=== PATIENT | male | born 1985 | race Caucasian/White ===

== ENCOUNTER 2018-02-22 15:19 | Inpatient (IN) ==
[2018-02-22] MEDS ORDERED: Sod Chloride 0.9% Inj 1,000 ML IV.SIG ONE (16:51)
[2018-02-22] MEDS ORDERED: Tetanus/Diphtheria Toxoid Adult Vaccine Inj 0.5 ML Vial IM ONE (16:51)
--- NOTE | 2018-02-22 16:55 | ED ---
HPI General Chief complaint: Skin/Abscess/Foreign Body Stated complaint: knee pain/va sent Time Seen by Provider: 02/22/18 16:46 History of Present Illness HPI narrative: This Is a 32-year-old male who [facility]. He reports that 5 days ago he fell [place] and scraped his right knee. For 4 days he has had pain and redness to the anterior right knee. [facility] and [facility] here for further evaluation. Pain is aching, constant, worse with movements of the right knee. Denies any fevers or chills. Symptoms are moderate. No other complaints at this time. Related Data Home Medications Medication Instructions Recorded Confirmed No Known Home Medications 02/22/18 02/22/18 Allergies Allergy/AdvReac Type Severity Reaction Status Date / Time gabapentin Allergy Rash Verified 02/22/18 15:49 haloperidol [From Haldol] Allergy Joint Pain Verified 02/22/18 15:49 ketorolac [From Toradol] Allergy Hives Verified 02/22/18 15:49 Review of Systems ROS: all other systems reviewed are negative PMFSH Medical History Medical History Asthma (Acute) Chronic back pain (Acute) GERD (gastroesophageal reflux disease) (Acute) Family History Family History Other Diabetes mellitus Social History Social History Substance History: No History of Abuse Second Hand Smoke Exposure: Yes Smoking Status: Current every day smoker Tobacco Type: Cigarettes How Often Do You Have a Drink Containing Alcohol: Never Recent Travel in [facility] within the Last 8 Weeks: No Recent Out of Country Travel within the Last 8 Weeks: No Exam Narrative Exam Narrative: GENERAL: Well-developed well-nourished male no acute distress SKIN: Warm and dry. Examination of the legs reveals multiple abrasions. There is an abrasion on the anterior right knee with large area of surrounding erythema and induration. No fluctuance. HEAD: Atraumatic. Normocephalic. EYES: Pupils equal and round. No scleral icterus. No injection or drainage. ENT: No nasal bleeding or discharge. Mucous membranes pink and moist. NECK: Trachea midline. No JVD. CARDIOVASCULAR: Regular rate and rhythm. No murmur appreciated. RESPIRATORY: No accessory muscle use. Clear to auscultation. Breath sounds equal bilaterally. GASTROINTESTINAL: Abdomen soft, non-tender, nondistended. Hepatic and splenic margins not palpable. MUSCULOSKELETAL: Skin as noted above. There is tenderness to palpation to the anterior right knee. There is pain with flexion of the right knee which is limited. Distal pulses are intact. NEUROLOGICAL: Awake and alert. No obvious cranial nerve deficits. Motor grossly within normal limits. Normal speech. Course Initial Documented Vital Signs Temperature 98.5 F 02/22/18 15:46 Pulse Rate 95 H 02/22/18 15:46 Respiratory Rate 20 02/22/18 15:46 Blood Pressure 143/82 H 02/22/18 15:46 Pulse Oximetry 100 02/22/18 15:46 Last Documented Vital Signs Temperature 98.2 F 02/23/18 00:00 Pulse Rate 80 02/23/18 00:00 Respiratory Rate 20 02/23/18 00:08 Blood Pressure 110/58 L 02/23/18 00:00 Pulse Oximetry 94 L 02/23/18 00:00 Medical Decision Making FREDIS Attestation FREDIS supervised visit: Yes Attestation: I, Dr. Lawler, have reviewed the advance practice practitioner's documentation and am in agreement, met with the patient face to face, made the diagnosis, and the medical decision making was done by me. *My assessment and Findings: Cellulitis vs. septic arthritis 32yo M with right knee and leg pain after falling while hiking. Pt has open wound and erythema right knee along with edema and warmth in right tib/fib. There is decreased flexion and extension in right knee so concern for septic arthritis. However, there is erythema over the area that we would do arthrocentesis so unable to perform it. Discussed with orthopedic surgeon Dr. Levy who have evaluated the patient and will take patient to the OR today. Labs reviewed, no leukocytosis. Mild hypokalemia. Lactic acid normal. However , C-reactive protein and ESR is elevated. Pt given antibiotics and will be NPO for OR tonight. MDM Narrative Medical decision making narrative: The patient has a large area of cellulitis noted to the right knee and right pretibial region, he has pain with flexion of the right knee which is limited. He has abrasions to the lower extremities. Plan is for lab work, x-ray of the right knee, he was given IV fluids, broad- spectrum antibiotics, tetanus vaccination. Lab work is been reviewed, potassium 3.0, oral potassium chloride administered, CRP is elevated at 13. ESR is 33. Case was discussed with the on-call orthopedist Dr Levy for concern of septic arthritis who saw the patient at bedside and plans on likely taking him to the OR today. Medical Screen Exam Complete: Yes Emergency Medical Condition: Yes Differential Diagnosis Differential Diagnosis: Cellulitis, sepsis, prepatellar bursitis, septic arthritis Lab Data Result diagrams: 02/22/18 17:45 02/22/18 17:45 Lab Results 02/22/18 02/22/18 02/22/18 Range/Units 17:45 17:45 17:45 WBC 10.5 (4.0-11.0) th/mm3 RBC 4.33 L (4.50-5.90) mil/mm3 Hgb 13.1 (13.0-17.0) gm/dL Hct 37.0 L (39.0-51.0) % MCV 85.6 (80.0-100.0) fL MCH 30.4 (27.0-34.0) pg MCHC 35.5 (32.0-36.0) % RDW 13.3 (11.6-17.2) % Plt Count 223 (150-450) th/mm3 MPV 8.4 (7.0-11.0) fL Neut % (Auto) 70.9 H (16.0-70.0) % Lymph % (Auto) 18.8 (9.0-44.0) % [place] % (Auto) 8.9 H (0.0-8.0) % Eos % (Auto) 1.1 (0.0-4.0) % Baso % (Auto) 0.3 (0.0-2.0) % Neut # (Auto) 7.4 (1.8-7.7) th/mm3 Lymph # (Auto) 2.0 (1.0-4.8) th/mm3 [place] # (Auto) 0.9 (0.0-0.9) th/mm3 Eos # (Auto) 0.1 (0.0-0.4) th/mm3 Baso # (Auto) 0.0 (0.0-0.2) th/mm3 WBC Differential . Differential Comment Auto diff final ESR (0-15) mm/hr Sodium 139 (136-145) meq/L Potassium 3.0 L (3.5-5.1) meq/L Chloride 101 (98-107) meq/L Carbon Dioxide 29.5 (21.0-32.0) meq/L Anion Gap 9 (5-15) meq/L BUN 10 (7-18) mg/dL Creatinine 0.78 (0.60-1.30) mg/dL Estimated GFR Greater than 89 (>89) mL/min Random Glucose 93 (74-106) mg/dL Lactic Acid 1.0 (0.4-2.0) mmol/L Calcium 8.7 (8.5-10.1) mg/dL Total Bilirubin 0.4 (0.2-1.0) mg/dL AST 19 (15-37) U/L ALT 34 (12-78) U/L Alkaline Phosphatase 98 (45-117) U/L Total Creatine Kinase 243 (39-308) U/L CK-MB (CK-2) 1.9 (0.5-3.6) ng/mL C-Reactive Protein 13.00 H (0.00-0.30) mg/dL Total Protein 6.8 (6.4-8.2) g/dL Albumin 3.0 L (3.4-5.0) g/dL 02/22/18 Range/Units 17:45 WBC (4.0-11.0) th/mm3 RBC (4.50-5.90) mil/mm3 Hgb (13.0-17.0) gm/dL Hct (39.0-51.0) % MCV (80.0-100.0) fL MCH (27.0-34.0) pg MCHC (32.0-36.0) % RDW (11.6-17.2) % Plt Count (150-450) th/mm3 MPV (7.0-11.0) fL Neut % (Auto) (16.0-70.0) % Lymph % (Auto) (9.0-44.0) % [place] % (Auto) (0.0-8.0) % Eos % (Auto) (0.0-4.0) % Baso % (Auto) (0.0-2.0) % Neut # (Auto) (1.8-7.7) th/mm3 Lymph # (Auto) (1.0-4.8) th/mm3 [place] # (Auto) (0.0-0.9) th/mm3 Eos # (Auto) (0.0-0.4) th/mm3 Baso # (Auto) (0.0-0.2) th/mm3 WBC Differential Differential Comment ESR 33 H (0-15) mm/hr Sodium (136-145) meq/L Potassium (3.5-5.1) meq/L Chloride (98-107) meq/L Carbon Dioxide (21.0-32.0) meq/L Anion Gap (5-15) meq/L BUN (7-18) mg/dL Creatinine (0.60-1.30) mg/dL Estimated GFR (>89) mL/min Random Glucose (74-106) mg/dL Lactic Acid (0.4-2.0) mmol/L Calcium (8.5-10.1) mg/dL Total Bilirubin (0.2-1.0) mg/dL AST (15-37) U/L ALT (12-78) U/L Alkaline Phosphatase (45-117) U/L Total Creatine Kinase (39-308) U/L CK-MB (CK-2) (0.5-3.6) ng/mL C-Reactive Protein (0.00-0.30) mg/dL Total Protein (6.4-8.2) g/dL Albumin (3.4-5.0) g/dL Imaging Data Radiologist's impression: Knee X-Ray 02/22/18 16:51 CONCLUSION: Negative examination Discharge Plan Discharge Disposition Patient Disposition: 30 Still Patient Discharge Condition Condition: Stable Discharge Details Diagnosis: Cellulitis of leg, right Physicians Team ED Provider: Lo Lawler ED Midlevel Provider: Silvestre Qureshi Primary Care Provider: [facility] 's Attending Provider: Vicky Steward Other Providers: Yessenia Levy Alexandra Status ED Status: Left Department Discharge Information Discharge Date/Time: 02/22/18 20:10
--- NOTE | 2018-02-22 17:11 | XR ---
EXAM DATE: 02/22/2018 5:07 PM EST AGE/SEX: 32 years / Male INDICATIONS: Right anterior knee pain after hiking. CLINICAL DATA: This is the patient's initial encounter. Patient reports that signs and symptoms have been present for 1 week and indicates a pain score of 9/10. MEDICAL/SURGICAL HISTORY: None. None. COMPARISON: No prior exams available for comparison. FINDINGS: Bony structures are intact and in normal alignment. Joints are intact without dislocation or signifi cant arthropathy. Osseous density is normal. Soft tissues are unremarkable. No radiopaque foreign bodies seen. CONCLUSION: Negative examination Electronically signed by: Mehran Doe MD 02/22/2018 5:08 PM EST
[2018-02-22] MEDS ORDERED: Piperacil/Tazo 4.5 GM Premix 4.5 GM/100 ML BAG IV.SIG ONE (17:36)
[2018-02-22] MEDS ORDERED: Vancomycin Inj 1,000 MG in Sodium Chlor 0.9% Inj 250 ML IV.SIG ONE (17:36)
[2018-02-22 18:08] LABS: Baso % (Auto) 0.3 % (0.0-2.0); Eos # (Auto) 0.1 th/mm3 (0.0-0.4); Eos % (Auto) 1.1 % (0.0-4.0); Hemoglobin 13.1 gm/dL (13.0-17.0); Lymph % (Auto) 18.8 % (9.0-44.0); Mean Corpuscular HGB Conc 35.5 % (32.0-36.0); Mean Corpuscular Hemoglobin 30.4 pg (27.0-34.0); Mean Corpuscular Volume 85.6 fL (80.0-100.0); Mean Platelet Volume 8.4 fL (7.0-11.0); Mono # (Auto) 0.9 th/mm3 (0.0-0.9); Mono % (Auto) 8.9 % (0.0-8.0); Neut # (Auto) 7.4 th/mm3 (1.8-7.7); Neut % (Auto) 70.9 % (16.0-70.0); Platelet Count 223 th/mm3 (150-450); Red Blood Count 4.33 mil/mm3 (4.50-5.90); Red Cell Distribution Width 13.3 % (11.6-17.2); White Blood Count 10.5 th/mm3 (4.0-11.0)
[2018-02-22 18:32] LABS: Anion Gap 9 meq/L (5-15); Aspartate Aminotransferase 19 U/L (15-37); Blood Urea Nitrogen 10 mg/dL (7-18); Calcium 8.7 mg/dL (8.5-10.1); Carbon Dioxide 29.5 meq/L (21.0-32.0); Chloride 101 meq/L (98-107); Glomerular Filtration Rate Greater Than 89 mL/min (>89); Glucose,Random 93 mg/dL (74-106); Sodium 139 meq/L (136-145)
[2018-02-22 18:33] LABS: Alanine Aminotransferase 34 U/L (12-78)
[2018-02-22 18:35] LABS: Alkaline Phosphatase 98 U/L (45-117); Creatine Kinase 243 U/L (39-308); Total Protein 6.8 g/dL (6.4-8.2)
[2018-02-22 18:50] LABS: Creatine Kinase MB 1.9 ng/mL (0.5-3.6)
--- NOTE | 2018-02-22 19:33 | P.CONOP ---
[facility] Orthopedics Consult Note - [facility] Consult date: 02/22/18 Chief complaint: knee pain/va sent Narrative: 32 year old male presents with right knee and leg pain and swelling. He reports 5 days ago he fell while hiking and got several scrapes on the leg. He noticed 3 days ago the knee began to feel stiff and started to swell. He reports increased difficulty bending the knee and increased pain. He denies any other joint swelling or history of knee problems. He was started on antibiotics in the ED. Review of Systems Constitutional: Denies chills, Denies fever(s) Cardiovascular: Denies chest pain Respiratory: Denies shortness of breath Gastrointestinal: Denies abdominal pain Musculoskeletal: Reports abnormal walking, Reports joint pain, Reports joint swelling Neurologic: Denies dizziness PMFSH - History History Provided By: Patient - Medical History Medical History: Medical History (Last Reviewed 02/22/18 @ 17:14 by Neville Sousa) Asthma Chronic back pain - Surgical History Surgical History: Surgical History (Last Updated 02/22/18 @ 17:14 by Neville Sousa) History of appendectomy Previous back surgery S/P wrist surgery - Tobacco History Second Hand Smoke Exposure: Yes Tobacco Use In Past 30 Days: Yes Smoking Status: Current every day smoker Tobacco Type: Cigarettes - Alcohol History How Often Do You Have a Drink Containing Alcohol: Never - Substance Use History Substance History: No History of Abuse - Travel History Recent Travel in the [place] Within the Last 8 Weeks: No Recent Travel Out of the Country Within the Last 8 Weeks: No - Immunization History Tetanus Immunization: Unsure Medications and Allergies Active Medications: Active Medications Sodium Chloride (Ns Flush) 2 ml IV.FLUSH PRN PRN PRN Reason: FLUSH AFTER USING IV ACCESS Allergies Allergy/AdvReac Type Severity Reaction Status Date / Time gabapentin Allergy Rash Verified 02/22/18 15:49 haloperidol [From Haldol] Allergy Joint Pain Verified 02/22/18 15:49 ketorolac [From Toradol] Allergy Hives Verified 02/22/18 15:49 Home Medications Medication Instructions Recorded Confirmed Type No Known Home Medications 02/22/18 02/22/18 History Exam Vital signs: Vital Signs 02/22/18 15:46 02/22/18 18:07 02/22/18 18:12 Temperature 98.5 F Pulse Rate 95 H 87 Respiratory Rate 20 18 Blood Pressure 143/82 H 113/61 Pulse Oximetry 100 99 99 Intake & Output 02/22/18 02/22/18 02/23/18 06:59 18:59 06:59 Weight 106.594 kg - Constitutional no acute distress - Routine HEENT Exam Head: Present: normocephalic, atraumatic - Routine Neck Exam Present: supple - Routine Respiratory Exam Absent: accessory muscle use - Routine Cardiovascular Exam Present: RRR - Routine Extremities Exam Comments: right leg swelling and erythema, most pronounced over anterior knee where there is an abrasion. Scattered other abrasions throughout leg. He has a moderate joint effusion. Only able to range the knee 0-20 degrees without significant pain. He is able to wiggle the toes and has intact sensation distally. +DP. - Routine Skin Exam Comments: scattered abrasions bilateral lower extremities Results - Labs Result Diagrams: 02/22/18 17:45 02/22/18 17:45 Labs: Laboratory Results - last 24 hr 02/22/18 02/22/18 02/22/18 17:45 17:45 17:45 WBC 10.5 RBC 4.33 L Hgb 13.1 Hct 37.0 L MCV 85.6 MCH 30.4 MCHC 35.5 RDW 13.3 Plt Count 223 MPV 8.4 Neut % (Auto) 70.9 H Lymph % (Auto) 18.8 [place] % (Auto) 8.9 H Eos % (Auto) 1.1 Baso % (Auto) 0.3 Neut # (Auto) 7.4 Lymph # (Auto) 2.0 [place] # (Auto) 0.9 Eos # (Auto) 0.1 Baso # (Auto) 0.0 WBC Differential . Differential Comment Auto diff final ESR Sodium 139 Potassium 3.0 L Chloride 101 Carbon Dioxide 29.5 Anion Gap 9 BUN 10 Creatinine 0.78 Estimated GFR Greater than 89 Random Glucose 93 Lactic Acid 1.0 Calcium 8.7 Total Bilirubin 0.4 AST 19 ALT 34 Alkaline Phosphatase 98 Total Creatine Kinase 243 CK-MB (CK-2) 1.9 C-Reactive Protein 13.00 H Total Protein 6.8 Albumin 3.0 L 02/22/18 17:45 WBC RBC Hgb Hct MCV MCH MCHC RDW Plt Count MPV Neut % (Auto) Lymph % (Auto) [place] % (Auto) Eos % (Auto) Baso % (Auto) Neut # (Auto) Lymph # (Auto) [place] # (Auto) Eos # (Auto) Baso # (Auto) WBC Differential Differential Comment ESR 33 H Sodium Potassium Chloride Carbon Dioxide Anion Gap BUN Creatinine Estimated GFR Random Glucose Lactic Acid Calcium Total Bilirubin AST ALT Alkaline Phosphatase Total Creatine Kinase CK-MB (CK-2) C-Reactive Protein Total Protein Albumin - Diagnostic results Imaging: Impressions Knee X-Ray 02/22/18 16:51 CONCLUSION: Negative examination Assessment and Plan - Assessment and Plan 32 year old male with right leg cellulitis and likely right knee septic arthritis -Unable to aspirate joint secondary to cellulitis present -Clinically, high concern for septic joint given exam and laboratory markers -Recommend arthroscopic vs open I&D right knee tonight -Risks, benefits and alternatives to surgery were discussed with the patient in detail and he would like to proceed with surgical treatment -Keep NPO
[2018-02-22] MEDS ORDERED: fentaNYL Citrate Inj 250 MCG/5 ML Ampul ONE (19:34)
[2018-02-22] MEDS ORDERED: Dexmedetomidine Inj 200 MCG/2 ML Vial ONE (20:21)
[2018-02-22] MEDS ORDERED: Acetaminophen 325 MG Tablet PO PRN (21:25)
[2018-02-22] MEDS ORDERED: Bisacodyl 10 MG Supp RECTAL PRN (21:25)
[2018-02-22] MEDS ORDERED: Vancomycin Consult Pharmacy OTHER PRN (21:28)
[2018-02-22] MEDS ORDERED: *HYDROmorphone PF Inj 1 MG/ML Ampul PERIprocedural Use ONLY ONE ×3 (22:04→22:28)
[2018-02-22] MEDS ORDERED: *Ondansetron Inj 4 MG/2 ML Vial PERIprocedural Use ONLY ONE (22:05)
--- NOTE | 2018-02-22 22:10 | P.BOP ---
- Preoperative Diagnosis (1) Septic arthritis of knee, right (2) Septic prepatellar bursitis of right knee - Postoperative Diagnosis (1) Septic arthritis of knee, right (2) Septic prepatellar bursitis of right knee Date of procedure: 02/22/18 Procedure: right knee arthroscopic and open I&D Anesthesia: GETA Surgeon: Yessenia Levy MD Estimated blood loss (mL): 25 Tourniquet time (min): 0 Pathology: other (cultures sent to microbiology) Condition: stable Disposition: PACU
[2018-02-22] MEDS: Sod Chloride 0.9% Inj 1,000 ML IV.CONT SCH (22:24)
--- NOTE | 2018-02-22 22:49 | P.HP ---
History of Present Illness Service: [facility] Primary Care Physician: [facility] History of Present Illness: 32-year-old male with a past medical history significant for previous opiate addiction currently on injectable Suboxone, asthma and GERD presents to the emergency department for the evaluation of a red, swollen, painful right knee. The patient reports he was hiking approximately 1 week ago when he sustained several scratches from the brush. He states that approximately 3-4 days ago his right knee began swelling and has become more painful and swollen since that time. He endorses subjective chills. He has had generalized malaise for several days. Patient denies any recent IV drug abuse. He reports that he has been clean for the last 7 months. No chest pain or shortness of breath. No abdominal pain. No nausea/vomiting/diarrhea. Of note, last Suboxone injection was 60 days ago. Inpatient Certification: I certify that the inpatient services were ordered in accordance with Medicare regulations governing the order. This includes certification that hospital inpatient services are reasonable and necessary and in the case of services not specified as inpatient-only under 42 CFR 419.22(n), that they are appropriately provided as inpatient services in accordance to with the 2-midnight benchmark under 43 CFR 412.3(e) Estimated Total Length of Stay (Days): 3 Plans for Post Hospital Care: Home Review of Systems All other systems reviewed negative except as stated in HPI [facility] - History History Provided By: Patient - Medical History Medical History: Medical History (Last Updated 02/22/18 @ 22:43 by Vicky Steward MD) Asthma Chronic back pain GERD (gastroesophageal reflux disease) - Surgical History Surgical History: Surgical History (Last Reviewed 02/22/18 @ 22:43 by Vicky Steward MD) History of appendectomy Previous back surgery S/P wrist surgery - Family History Family History: Family History (Last Updated 02/22/18 @ 22:43 by Vicky Steward MD) Other Diabetes mellitus - Tobacco History Second Hand Smoke Exposure: Yes Tobacco Use In Past 30 Days: Yes Smoking Status: Current every day smoker Tobacco Type: Cigarettes - Alcohol History How Often Do You Have a Drink Containing Alcohol: Never - Substance Use History Substance History: No History of Abuse - Travel History Recent Travel in the [place] Within the Last 8 Weeks: No Recent Travel Out of the Country Within the Last 8 Weeks: No - Immunization History Tetanus Immunization: Unsure Medications and Allergies Active Medications: Active Medications Acetaminophen (Tylenol) 650 mg PO Q4H PRN PRN Reason: Temp > 100.4/pain 1 - 3 Hydrocodone Bitart/Acetaminophen ([place] 5/325) 1 tab PO Q4H PRN PRN Reason: pain > 4 Albuterol (Duoneb Neb (Prn)) 1 ampul NEB Q2HR NEB PRN PRN Reason: sob/wheezing Bisacodyl (Dulcolax Supp) 10 mg RECTAL DAILY PRN PRN Reason: SEVERE CONSITIPATION Sodium Chloride (Ns Inj) 1,000 mls @ 100 mls/hr IV.CONT .Q10H [place] Last Admin: 02/22/18 22:24 Dose: 100 mls/hr Piperacillin/Tazobactam/Dextrose (Zosyn 3.375 Gm Premix) 50 mls @ 100 mls/hr IV.SIG Q6H [place] Vancomycin HCl 500 mg/ Sodium (Chloride) 100 mls @ 200 mls/hr IV.SIG ONCE ONE Stop: 02/22/18 23:29 Vancomycin HCl 1,250 mg/ (Sodium Chloride) 262.5 mls @ 262.5 mls/hr IV.SIG Q8H [facility] Miscellaneous Information ([facility] Ordered Lab Info) 1 each OTHER ONCE ONE Stop: 02/23/18 23:46 Ondansetron HCl (Zofran Inj) 4 mg IV.PUSH Q6H PRN PRN Reason: NAUSEA OR VOMITING Pharmacy Profile Note (Vancomycin Consult Pharmacy) 1 each OTHER UNSCH PRN PRN Reason: Pharmacy to dose Sennosides (Senokot) 17.2 mg PO Q12H PRN PRN Reason: Moderate Constipation Sodium Chloride (Ns Flush) 2 ml IV.FLUSH PRN PRN PRN Reason: FLUSH AFTER USING IV ACCESS Allergies Allergy/AdvReac Type Severity Reaction Status Date / Time gabapentin Allergy Rash Verified 02/22/18 15:49 haloperidol [From Haldol] Allergy Joint Pain Verified 02/22/18 15:49 ketorolac [From Toradol] Allergy Hives Verified 02/22/18 15:49 Home Medications Medication Instructions Recorded Confirmed Type No Known Home Medications 02/22/18 02/22/18 History Exam Vital signs: Vital Signs 02/22/18 15:46 02/22/18 18:07 02/22/18 18:12 Temperature 98.5 F Pulse Rate 95 H 87 Respiratory Rate 20 18 Blood Pressure 143/82 H 113/61 Pulse Oximetry 100 99 99 02/22/18 19:52 Temperature Pulse Rate 89 Respiratory Rate 20 Blood Pressure 140/87 Pulse Oximetry 98 Intake & Output 02/22/18 02/22/18 02/23/18 06:59 18:59 06:59 Intake Total 1750 / 1750 Output Total Balance 1725 / 1725 Weight 106.594 kg Intake: IV 1100 / 1100 Zosyn 4.5 GM Premix 4.5 gm In 100 / 100 100 ml @ 200 mls/hr IV.SIG ONCE ONE Rx#:[id number] NS Inj 1,000 ML @ Wide Open IV. 1000 / 1000 SIG BOLUS ONE Rx#:[id number] Anesthesia Amount 650 / 650 Output: Estimated Blood Loss Narrative: Gen.: No acute distress Head: Normocephalic. Atraumatic. EENT: Pupils equal round and reactive to light. Nose without drainage. Airway intact. Throat without injection. Cardiovascular: Regular rate and rhythm. No murmurs, rubs or gallops. Respiratory: Lungs clear to auscultation bilaterally. No wheezes or rhonchi. Abdomen: Soft, nontender, nondistended. No peritoneal signs. Musculoskeletal: Right knee with edema and effusion. Painful and warm to touch. Skin: Multiple abrasions to bilateral lower extremities. Neuro: Sensory and motor grossly intact. Cranial nerves II through XII grossly intact. Results - Labs CBC & Chem 7: 02/22/18 17:45 02/22/18 17:45 Labs: Laboratory Results - last 24 hr 02/22/18 02/22/18 02/22/18 17:45 17:45 17:45 WBC 10.5 RBC 4.33 L Hgb 13.1 Hct 37.0 L MCV 85.6 MCH 30.4 MCHC 35.5 RDW 13.3 Plt Count 223 MPV 8.4 Neut % (Auto) 70.9 H Lymph % (Auto) 18.8 [place] % (Auto) 8.9 H Eos % (Auto) 1.1 Baso % (Auto) 0.3 Neut # (Auto) 7.4 Lymph # (Auto) 2.0 [place] # (Auto) 0.9 Eos # (Auto) 0.1 Baso # (Auto) 0.0 WBC Differential . Differential Comment Auto diff final ESR Sodium 139 Potassium 3.0 L Chloride 101 Carbon Dioxide 29.5 Anion Gap 9 BUN 10 Creatinine 0.78 Estimated GFR Greater than 89 Random Glucose 93 Lactic Acid 1.0 Calcium 8.7 Total Bilirubin 0.4 AST 19 ALT 34 Alkaline Phosphatase 98 Total Creatine Kinase 243 CK-MB (CK-2) 1.9 C-Reactive Protein 13.00 H Total Protein 6.8 Albumin 3.0 L 02/22/18 17:45 WBC RBC Hgb Hct MCV MCH MCHC RDW Plt Count MPV Neut % (Auto) Lymph % (Auto) [place] % (Auto) Eos % (Auto) Baso % (Auto) Neut # (Auto) Lymph # (Auto) [place] # (Auto) Eos # (Auto) Baso # (Auto) WBC Differential Differential Comment ESR 33 H Sodium Potassium Chloride Carbon Dioxide Anion Gap BUN Creatinine Estimated GFR Random Glucose Lactic Acid Calcium Total Bilirubin AST ALT Alkaline Phosphatase Total Creatine Kinase CK-MB (CK-2) C-Reactive Protein Total Protein Albumin - Imaging Impressions Knee X-Ray 02/22/18 16:51 CONCLUSION: Negative examination Caprini VTE Risk Assessment Caprini VTE Risk Assessment: No/Low Risk (score <= 1) Caprini Risk Assessment Model: Point Value = 1 Point Value = 2 Point Value = 3 Point Value = 5 Age 41-60 Minor surgery BMI > 25 kg/m2 Swollen legs Varicose veins or History of unexplained or recurrent spontaneous Oral contraceptives or hormone replacement Sepsis (< 1 month) Serious lung disease, including pneumonia (< 1 month) Abnormal pulmonary function Acute myocardial infarction Congestive heart failure (< 1 month) History of inflammatory bowel disease Medical patient at bed rest Age 61-74 Arthroscopic surgery Major open surgery (> 45 min) Laparoscopic surgery (> 45 min) Malignancy Confined to bed (> 72 hours) Immobilizing plaster cast Central venous access Age >= 75 History of VTE Family history of VTE Factor V Leiden Prothrombin [id number] Lupus anticoagulant Anticardiolipin antibodies Elevated serum homocysteine Heparin-induced thrombocytopenia Other congenital or acquired thrombophilia Stroke (< 1 month) Elective arthroplasty Hip, pelvis, or leg fracture Acute spinal cord injury (< 1 month) Prophylaxis Regimen: Total Risk Factor Score Risk Level Prophylaxis Regimen 0-1 Low Early ambulation 2 Moderate Order ONE of the following: *Sequential Compression Device (SCD) *Heparin 5000 units SQ BID 3-4 Higher Order ONE of the following medications: *Heparin 5000 units SQ TID *Enoxaparin/Lovenox 40 mg SQ daily (WT < 150 kg, CrCl > 30 mL/min) *Enoxaparin/Lovenox 30 mg SQ daily (WT < 150 kg, CrCl > 10-29 mL/min) *Enoxaparin/Lovenox 30 mg SQ BID (WT < 150 kg, CrCl > 30 mL/min) AND/OR *Sequential Compression Device (SCD) 5 or more Highest Order ONE of the following medications: *Heparin 5000 units SQ TID (Preferred with Epidurals) *Enoxaparin/Lovenox 40 mg SQ daily (WT < 150 kg, CrCl > 30 mL/min) *Enoxaparin/Lovenox 30 mg SQ daily (WT < 150 kg, CrCl > 10-29 mL/min) *Enoxaparin/Lovenox 30 mg SQ BID (WT < 150 kg, CrCl > 30 mL/min) AND *Sequential Compression Device (SCD) Assessment and Plan - Plan Assessment/plan: 1. Septic arthritis Orthopedic surgery consulted, status post washout in OR Fluid studies pending Blood cultures pending Vancomycin/Zosyn Infectious disease consulted 2. History of opiate abuse Patient currently on Suboxone injections, last one was 60 days ago Caution with opiates 3. Hypokalemia Status post p.o. repletion Monitor BMP FEN N.p.o. Electrolytes: As above NS at 100 cc/hour
[2018-02-22] MEDS ORDERED: Vancomycin Inj 500 MG in Sodium Chlor 0.9% Inj 100 ML IV.SIG ONE (23:00)
[2018-02-22] MEDS: Piperacil/Tazo 3.375 GM Premix 50 ML IV.SIG SCH (23:11)
[2018-02-23] MEDS: Piperacil/Tazo 3.375 GM Premix 50 ML IV.SIG SCH ×5 (03:46→22:35)
[2018-02-23 04:33] LABS: Baso % (Auto) 0.1 % (0.0-2.0); Hematocrit 35.6 % (39.0-51.0); Hemoglobin 12.4 gm/dL (13.0-17.0); Lymph # (Auto) 0.6 th/mm3 (1.0-4.8); Lymph % (Auto) 5.5 % (9.0-44.0); Mean Corpuscular HGB Conc 34.8 % (32.0-36.0); Mean Corpuscular Hemoglobin 29.8 pg (27.0-34.0); Mean Corpuscular Volume 85.4 fL (80.0-100.0); Mean Platelet Volume 8.8 fL (7.0-11.0); Mono # (Auto) 0.3 th/mm3 (0.0-0.9); Mono % (Auto) 2.6 % (0.0-8.0); Neut # (Auto) 10.2 th/mm3 (1.8-7.7); Neut % (Auto) 91.8 % (16.0-70.0); Platelet Count 208 th/mm3 (150-450); Red Blood Count 4.17 mil/mm3 (4.50-5.90); Red Cell Distribution Width 13.4 % (11.6-17.2); White Blood Count 11.1 th/mm3 (4.0-11.0)
[2018-02-23 04:53] LABS: Anion Gap 8 meq/L (5-15); Blood Urea Nitrogen 8 mg/dL (7-18); Carbon Dioxide 27.6 meq/L (21.0-32.0); Chloride 107 meq/L (98-107); Glomerular Filtration Rate Greater Than 89 mL/min (>89); Glucose,Random 146 mg/dL (74-106); Potassium 3.5 meq/L (3.5-5.1); Sodium 143 meq/L (136-145)
[2018-02-23] MEDS ORDERED: Vancomycin Inj 1,250 MG in Sodium Chlor 0.9% Inj 250 ML IV.SIG SCH (08:00)
[2018-02-23] MEDS: Sod Chloride 0.9% Inj 1,000 ML IV.CONT SCH ×2 (08:34→22:39)
--- NOTE | 2018-02-23 11:35 | P.PN ---
Subjective Interval history: This is a pleasant 32 y/o male with Previous Opiate addiction, on injectable Suboxone, Asthma, GERD, who came to ER with red swollen, painful right knee, with diagnosis of Septic Arthritis Orthopedic surgery consulted and with diagnosis of Septic Arthritis of the right knee, septic prepatellar bursitis of the right knee status post Right knee arthroscopic and Open I and D. 02/22/1802/23: Seen in his bedroom in the presence of his Mother and Father stable no complaint, wants his home medicines will be started once he has the right dosages they will bring the medications for the nurse to start her medication reconciliation as per Orthopedic surgery, he has positive Staph aureus, continue with [place] drain to be removed on POD #2, then begin with daily dry dressing changes, Weight bearing as tolerated, PT for mobilization no nausea, vomit or diarrhea. ID recommended to switch antibiotics to Oxacillin. Physical Exam Vital signs: Vital Signs 02/22/18 15:46 02/22/18 18:07 02/22/18 18:12 Temperature 98.5 F Pulse Rate 95 H 87 Respiratory Rate 20 18 Blood Pressure 143/82 H 113/61 Pulse Oximetry 100 99 99 02/22/18 19:52 02/22/18 21:58 02/22/18 22:00 Temperature 98.2 F Pulse Rate 89 101 H 100 H Respiratory Rate 20 16 16 Blood Pressure 140/87 122/91 H 130/84 Pulse Oximetry 98 96 96 02/22/18 22:15 02/22/18 22:30 02/23/18 00:00 Temperature 98.2 F 98.2 F Pulse Rate 84 82 80 Respiratory Rate 24 10 L 20 Blood Pressure 122/70 124/67 110/58 L Pulse Oximetry 95 94 L 94 L 02/23/18 00:08 02/23/18 04:00 02/23/18 05:40 Temperature 97.7 F Pulse Rate 53 L Respiratory Rate 20 14 18 Blood Pressure 102/71 Pulse Oximetry 98 02/23/18 08:00 Temperature 97.6 F Pulse Rate 69 Respiratory Rate 19 Blood Pressure 112/71 Pulse Oximetry 97 Intake & Output 02/22/18 02/23/18 02/23/18 18:59 06:59 18:59 Intake Total 2200 / 2200 1000 / 1000 Output Total 1050 / 1050 Balance 1150 / 1150 1000 / 1000 Weight 106.594 kg 112.4 kg Intake: IV 1550 / 1550 1000 / 1000 NS Inj 1,000 ML @ 100 mls/hr IV 1000 / 1000 .CONT .Q10H [facility] Rx#:[id number] Zosyn 3.375 GM Premix 50 ML @ 100 / 100 100 mls/hr IV.SIG Q6H [facility] Rx#: [id number] Zosyn 4.5 GM Premix 4.5 gm In 100 / 100 100 ml @ 200 mls/hr IV.SIG ONCE ONE Rx#:[id number] NS Inj 1,000 ML @ Wide Open IV. 1000 / 1000 SIG BOLUS ONE Rx#:[id number] Vancomycin Inj 1,000 MG In NS 250 / 250 Inj 250 ML @ 250 mls/hr IV.SIG ONCE ONE Rx#:[id number] Vancomycin Inj 500 MG In NS Inj 100 / 100 100 ML @ 200 mls/hr IV.SIG ONCE ONE Rx#:[id number] Anesthesia Amount 650 / 650 Output: Urine 1025 / 1025 Estimated Blood Loss 25 / 25 Other: Weight On Admission 113.2 kg Narrative: Gen.: Obesity, No acute distress Head: Normocephalic. Atraumatic. EENT: Pupils equal round and reactive to light. Nose without drainage. Cardiovascular: Regular rate and rhythm. No murmurs, rubs or gallops. Respiratory: Lungs clear to auscultation bilaterally. No wheezes or rhonchi. Abdomen: Soft, nontender, nondistended. No peritoneal signs. Musculoskeletal: Right knee with Orthotics in place. Skin: Multiple abrasions to bilateral lower extremities. Neuro: Sensory and motor grossly intact. Cranial nerves II through XII grossly intact. Results - Labs CBC & Chem 7: 02/23/18 03:32 02/23/18 03:32 Laboratory Results - last 24 hr 02/22/18 02/22/18 02/22/18 17:45 17:45 17:45 WBC 10.5 RBC 4.33 L Hgb 13.1 Hct 37.0 L MCV 85.6 MCH 30.4 MCHC 35.5 RDW 13.3 Plt Count 223 MPV 8.4 Neut % (Auto) 70.9 H Lymph % (Auto) 18.8 [place] % (Auto) 8.9 H Eos % (Auto) 1.1 Baso % (Auto) 0.3 Neut # (Auto) 7.4 Lymph # (Auto) 2.0 [place] # (Auto) 0.9 Eos # (Auto) 0.1 Baso # (Auto) 0.0 WBC Differential . Differential Comment Auto diff final ESR Sodium 139 Potassium 3.0 L Chloride 101 Carbon Dioxide 29.5 Anion Gap 9 BUN 10 Creatinine 0.78 Estimated GFR Greater than 89 Random Glucose 93 Lactic Acid 1.0 Calcium 8.7 Total Bilirubin 0.4 AST 19 ALT 34 Alkaline Phosphatase 98 Total Creatine Kinase 243 CK-MB (CK-2) 1.9 C-Reactive Protein 13.00 H Total Protein 6.8 Albumin 3.0 L 02/22/18 02/23/18 02/23/18 17:45 03:32 03:32 WBC 11.1 H RBC 4.17 L Hgb 12.4 L Hct 35.6 L MCV 85.4 MCH 29.8 MCHC 34.8 RDW 13.4 Plt Count 208 MPV 8.8 Neut % (Auto) 91.8 H Lymph % (Auto) 5.5 L [place] % (Auto) 2.6 Eos % (Auto) 0.0 Baso % (Auto) 0.1 Neut # (Auto) 10.2 H Lymph # (Auto) 0.6 L [place] # (Auto) 0.3 Eos # (Auto) 0.0 Baso # (Auto) 0.0 WBC Differential . Differential Comment Auto diff final ESR 33 H Sodium 143 Potassium 3.5 Chloride 107 Carbon Dioxide 27.6 Anion Gap 8 BUN 8 Creatinine 0.71 Estimated GFR Greater than 89 Random Glucose 146 H Lactic Acid Calcium 8.0 L Total Bilirubin AST ALT Alkaline Phosphatase Total Creatine Kinase CK-MB (CK-2) C-Reactive Protein Total Protein Albumin Microbiology 02/22/18 17:45 Blood - Peripheral Aerobic Blood Culture - Preliminary No growth in 1 day 02/22/18 17:45 Blood - Peripheral Anaerobic Blood Culture - Preliminary No growth in 1 day 02/22/18 17:40 Blood - Peripheral Aerobic Blood Culture - Preliminary No growth in 1 day 02/22/18 17:40 Blood - Peripheral Anaerobic Blood Culture - Preliminary No growth in 1 day 02/22/18 20:56 Fluid - Other Gram Stain - Final 02/22/18 20:54 Fluid - Other Gram Stain - Final 02/22/18 20:53 Fluid - Other Gram Stain - Final 02/22/18 20:56 Fluid - Other Fungal Smear - Final No fungal elements seen 02/22/18 20:54 Other Fungal Smear - Final No fungal elements seen 02/22/18 20:53 Other Fungal Smear - Final No fungal elements seen - Imaging Impressions Knee X-Ray 02/22/18 16:51 CONCLUSION: Negative examination - Procedures (1) Septic arthritis of knee, right (2) Septic prepatellar bursitis of right knee - Postoperative Diagnosis (1) Septic arthritis of knee, right (2) Septic prepatellar bursitis of right knee Date of procedure: 02/22/18 Procedure: right knee arthroscopic and open I&D Anesthesia: GETA Surgeon: Yessenia Levy MD Assessment and Plan - Plan 1. Septic Arthritis of the right knee/septic prepatellar bursitis of the right knee status post Right knee arthroscopic and Open I and D. 02/22/18. ID specialist consulted, at this time on Vancomycin and Zosyn following cultures. 02/23: As per Orthopedic surgery, he has positive Staph aureus, continue with [place] drain to be removed on POD #2, then begin with daily dry dressing changes, Weight bearing as tolerated, PT for mobilization ID recommended to switch antibiotics to Oxacillin. 2. History of opiate abuse Patient currently on Suboxone injections, last one was 60 days ago Caution with opiates 3. Hypokalemia Status post p.o. repletion Monitor BMP 4. Obesity strongly recommended diet and exercise as outpatient. FEN N.p.o. Electrolytes: As above NS at 100 cc/hour Code Status: Full code. Discussed Condition With: Patient, Nurse, Father and Mother. Discharge Planning: Once cleared by specialists.
[2018-02-23] MEDS ORDERED: Vancomycin Inj 2,000 MG in Sodium Chlor 0.9% Inj 500 ML IV.SIG SCH (18:00)
--- NOTE | 2018-02-23 19:48 | P.PNOP ---
Subjective Interval history: No new issues overnight. Expected right knee pain. One culture growing Staph aureus. Physical Exam Vital signs: Vital Signs 02/22/18 19:52 02/22/18 21:58 02/22/18 22:00 Temperature 98.2 F Pulse Rate 89 101 H 100 H Respiratory Rate 20 16 16 Blood Pressure 140/87 122/91 H 130/84 Pulse Oximetry 98 96 96 02/22/18 22:15 02/22/18 22:30 02/23/18 00:00 Temperature 98.2 F 98.2 F Pulse Rate 84 82 80 Respiratory Rate 24 10 L 20 Blood Pressure 122/70 124/67 110/58 L Pulse Oximetry 95 94 L 94 L 02/23/18 00:08 02/23/18 04:00 02/23/18 05:40 Temperature 97.7 F Pulse Rate 53 L Respiratory Rate 20 14 18 Blood Pressure 102/71 Pulse Oximetry 98 02/23/18 08:00 02/23/18 12:00 02/23/18 13:20 Temperature 97.6 F 97.8 F Pulse Rate 69 60 Respiratory Rate 19 17 16 Blood Pressure 112/71 116/72 Pulse Oximetry 97 97 02/23/18 16:00 Temperature 97.7 F Pulse Rate 75 Respiratory Rate 19 Blood Pressure 114/64 Pulse Oximetry 98 Intake & Output 02/23/18 02/23/18 02/24/18 06:59 18:59 06:59 Intake Total 2200 / 2200 1640 / 1640 Output Total 1050 / 1050 Balance 1150 / 1150 1640 / 1640 Weight 112.4 kg Intake: IV 1550 / 1550 1100 / 1100 NS Inj 1,000 ML @ 100 mls/hr IV 1000 / 1000 .CONT .Q10H [facility] Rx#:[id number] Zosyn 3.375 GM Premix 50 ML @ 100 / 100 100 / 100 100 mls/hr IV.SIG Q6H [facility] Rx#: [id number] Zosyn 4.5 GM Premix 4.5 gm In 100 / 100 100 ml @ 200 mls/hr IV.SIG ONCE ONE Rx#:[id number] NS Inj 1,000 ML @ Wide Open IV. 1000 / 1000 SIG BOLUS ONE Rx#:[id number] Vancomycin Inj 1,000 MG In NS 250 / 250 Inj 250 ML @ 250 mls/hr IV.SIG ONCE ONE Rx#:[id number] Vancomycin Inj 500 MG In NS Inj 100 / 100 100 ML @ 200 mls/hr IV.SIG ONCE ONE Rx#:[id number] Oral 540 / 540 Anesthesia Amount 650 / 650 Output: Urine 1025 / 1025 Estimated Blood Loss 25 / 25 Other: # Voids 4 # Bowel Movements 1 Weight On Admission 113.2 kg Narrative: Right lower extremity dressing clean, dry and intact. Neurovascularly intact distally. Results - Labs CBC & Chem 7: 02/23/18 03:32 02/23/18 03:32 Laboratory Results - last 24 hr 02/23/18 02/23/18 03:32 03:32 WBC 11.1 H RBC 4.17 L Hgb 12.4 L Hct 35.6 L MCV 85.4 MCH 29.8 MCHC 34.8 RDW 13.4 Plt Count 208 MPV 8.8 Neut % (Auto) 91.8 H Lymph % (Auto) 5.5 L [place] % (Auto) 2.6 Eos % (Auto) 0.0 Baso % (Auto) 0.1 Neut # (Auto) 10.2 H Lymph # (Auto) 0.6 L [place] # (Auto) 0.3 Eos # (Auto) 0.0 Baso # (Auto) 0.0 WBC Differential . Differential Comment Auto diff final Sodium 143 Potassium 3.5 Chloride 107 Carbon Dioxide 27.6 Anion Gap 8 BUN 8 Creatinine 0.71 Estimated GFR Greater than 89 Random Glucose 146 H Calcium 8.0 L Microbiology 02/22/18 20:56 Fluid - Other Acid Fast Bacilli Smear - Final No acid fast bacilli seen 02/22/18 20:54 Other Acid Fast Bacilli Smear - Final No acid fast bacilli seen 02/22/18 20:53 Other Acid Fast Bacilli Smear - Final No acid fast bacilli seen 02/22/18 20:56 Fluid - Other Gram Stain - Final 02/22/18 20:56 Fluid - Other Wound Culture - Preliminary No growth in 24 hours 02/22/18 20:54 Fluid - Other Gram Stain - Final 02/22/18 20:54 Fluid - Other Wound Culture - Preliminary No growth in 24 hours 02/22/18 20:53 Fluid - Other Gram Stain - Final 02/22/18 20:53 Fluid - Other Wound Culture - Preliminary Staphylococcus aureus 02/22/18 20:53 Other Fungal Smear - Final No fungal elements seen 02/22/18 17:45 Blood - Peripheral Aerobic Blood Culture - Preliminary No growth in 1 day 02/22/18 17:45 Blood - Peripheral Anaerobic Blood Culture - Preliminary No growth in 1 day 02/22/18 17:40 Blood - Peripheral Aerobic Blood Culture - Preliminary No growth in 1 day 02/22/18 17:40 Blood - Peripheral Anaerobic Blood Culture - Preliminary No growth in 1 day 02/22/18 20:56 Fluid - Other Fungal Smear - Final No fungal elements seen 02/22/18 20:54 Other Fungal Smear - Final No fungal elements seen - Procedures (1) Septic arthritis of knee, right (2) Septic prepatellar bursitis of right knee - Postoperative Diagnosis (1) Septic arthritis of knee, right (2) Septic prepatellar bursitis of right knee Date of procedure: 02/22/18 Procedure: right knee arthroscopic and open I&D Anesthesia: GETA Surgeon: Yessenia Levy MD Assessment and Plan - Assessment and Plan 32 year old male POD 1 s/p I&D right knee joint and prepatellar bursa; superficial cultures +Staph aureus, deep cultures NG Plan: -Wound check and remove maddie drain tomorrow (POD 2), then begin daily dry dressing changes -WBAT RLE -PT for mobilization -VTE ppx: SCDs, ambulation -Continue antibiotics per infectious disease recommendations
[2018-02-23] MEDS: traZODone 100 MG Tablet PO SCH (22:34)
--- NOTE | 2018-02-23 23:07 | P.CONID ---
History of Present Illness Service: ID Consult date: 02/23/18 Requesting Physician: Tao Portillo Reason for Consult: Rle infectio Primary Care Provider: [facility] History of Present Illness: 32 yo M presented with 4 day swelling, pain red lesion on the RLE after her scraped while hiking He went to [place] to evaluate it and was immediately admited to [place] He was diagnosed with Septic prepatellar bursitis of right knee S/p I+D yday clx are growing MSSA On presentation afebrile, mildly elevated WBC He feels much better post op He is on Piperacillin/Tazobactam and Vancomycin H Review of Systems All other systems reviewed negative except as stated in HPI PMFSH - History History Provided By: Patient - Medical History Medical History: Medical History (Last Reviewed 02/24/18 @ 01:51 by Ashlyn Stokes MD) Asthma Chronic back pain GERD (gastroesophageal reflux disease) - Surgical History Surgical History: Surgical History (Last Reviewed 02/24/18 @ 01:51 by Ashlyn Stokes MD) History of appendectomy Previous back surgery S/P wrist surgery - Family History Family History: Family History (Last Reviewed 02/23/18 @ 12:00 by Jenn Simmons PT) Other Diabetes mellitus - Social History I have reviewed the patient's Social History: Yes - Tobacco History Second Hand Smoke Exposure: Yes Tobacco Use In Past 30 Days: Yes Smoking Status: Current every day smoker Tobacco Type: Cigarettes - Alcohol History How Often Do You Have a Drink Containing Alcohol: Never - Substance Use History Substance History: No History of Abuse - Travel History Recent Travel in the [place] Within the Last 8 Weeks: No Recent Travel Out of the Country Within the Last 8 Weeks: No - Immunization History Tetanus Immunization: Unsure Medications and Allergies Active Medications: Active Medications Acetaminophen (Tylenol) 650 mg PO Q4H PRN PRN Reason: Temp > 100.4/pain 1 - 3 Albuterol (Duoneb Neb (Prn)) 1 ampul NEB Q2HR NEB PRN PRN Reason: sob/wheezing Bisacodyl (Dulcolax Supp) 10 mg RECTAL DAILY PRN PRN Reason: SEVERE CONSITIPATION Sodium Chloride (Ns Inj) 1,000 mls @ 100 mls/hr IV.CONT .Q10H [facility] Last Infusion: 02/23/18 22:39 Dose: 100 mls/hr Piperacillin/Tazobactam/Dextrose (Zosyn 3.375 Gm Premix) 50 mls @ 100 mls/hr IV.SIG Q6H [facility] Last Admin: 02/23/18 22:35 Dose: 100 mls/hr Vancomycin HCl 2,000 mg/ (Sodium Chloride) 520 mls @ 250 mls/hr IV.SIG Q12H [facility] Last Infusion: 02/23/18 21:00 Dose: Infused Miscellaneous Information ([facility] Ordered Lab Info) 0 each OTHER ONCE ONE Stop: 02/25/18 05:46 Ondansetron HCl (Zofran Inj) 4 mg IV.PUSH Q6H PRN PRN Reason: NAUSEA OR VOMITING Oxycodone/Acetaminophen (Percocet 5/325 Mg) 1 tab PO Q4H PRN PRN Reason: Acute Pain 1-5 Last Admin: 02/23/18 22:34 Dose: 1 tab Pharmacy Profile Note (Vancomycin Consult Pharmacy) 1 each OTHER UNSCH PRN PRN Reason: Pharmacy to dose Prazosin HCl (Minipress) 4 mg PO [facility] Last Admin: 02/23/18 22:34 Dose: 4 mg Sennosides (Senokot) 17.2 mg PO Q12H PRN PRN Reason: Moderate Constipation Sodium Chloride (Ns Flush) 2 ml IV.FLUSH PRN PRN PRN Reason: FLUSH AFTER USING IV ACCESS Trazodone HCl (Desyrel) 200 mg PO [facility] Last Admin: 02/23/18 22:34 Dose: 200 mg Allergies Allergy/AdvReac Type Severity Reaction Status Date / Time gabapentin Allergy Rash Verified 02/22/18 15:49 haloperidol [From Haldol] Allergy Joint Pain Verified 02/22/18 15:49 ketorolac [From Toradol] Allergy Hives Verified 02/22/18 15:49 Home Medications Medication Instructions Recorded Confirmed Type buspirone PO TID 02/23/18 History omeprazole 40 mg PO DAILY 02/23/18 02/23/18 History prazosin 4 mg PO HS 02/23/18 02/23/18 History trazodone 200 mg PO HS 02/23/18 02/23/18 History venlafaxine 100 mg PO TID 02/23/18 02/23/18 History Exam Vital signs: Vital Signs 02/23/18 00:00 02/23/18 00:08 02/23/18 04:00 Temperature 98.2 F 97.7 F Pulse Rate 80 53 L Respiratory Rate 20 20 14 Blood Pressure 110/58 L 102/71 Pulse Oximetry 94 L 98 02/23/18 05:40 02/23/18 08:00 02/23/18 12:00 Temperature 97.6 F 97.8 F Pulse Rate 69 60 Respiratory Rate 18 19 17 Blood Pressure 112/71 116/72 Pulse Oximetry 97 97 02/23/18 13:20 02/23/18 16:00 02/23/18 20:00 Temperature 97.7 F 98.1 F Pulse Rate 75 82 Respiratory Rate 16 19 20 Blood Pressure 114/64 105/59 L Pulse Oximetry 98 98 Intake & Output 02/23/18 02/23/18 02/24/18 06:59 18:59 06:59 Intake Total 2200 / 2200 1640 / 1640 520 / 520 Output Total 1050 / 1050 Balance 1150 / 1150 1640 / 1640 520 / 520 Weight 112.4 kg Intake: IV 1550 / 1550 1100 / 1100 520 / 520 NS Inj 1,000 ML @ 100 mls/hr IV 1000 / 1000 .CONT .Q10H [facility] Rx#:[id number] Zosyn 3.375 GM Premix 50 ML @ 100 / 100 100 / 100 100 mls/hr IV.SIG Q6H [facility] Rx#: [id number] Zosyn 4.5 GM Premix 4.5 gm In 100 / 100 100 ml @ 200 mls/hr IV.SIG ONCE ONE Rx#:[id number] NS Inj 1,000 ML @ Wide Open IV. 1000 / 1000 SIG BOLUS ONE Rx#:[id number] Vancomycin Inj 1,000 MG In NS 250 / 250 Inj 250 ML @ 250 mls/hr IV.SIG ONCE ONE Rx#:[id number] Vancomycin Inj 2,000 MG In NS 520 / 520 Inj 500 ML @ 250 mls/hr IV.SIG Q12H [facility] Rx#:[id number] Vancomycin Inj 500 MG In NS Inj 100 / 100 100 ML @ 200 mls/hr IV.SIG ONCE ONE Rx#:[id number] Oral 540 / 540 Anesthesia Amount 650 / 650 Output: Urine 1025 / 1025 Estimated Blood Loss 25 / 25 Other: # Voids 4 # Bowel Movements 1 Weight On Admission 113.2 kg - Constitutional no acute distress, average body habitus - Routine HEENT Exam Head: Present: normocephalic, atraumatic Eye: Present: EOMI, PERRL ENT: Present: mucous membranes moist, dentition normal - Routine Neck Exam Present: supple, full ROM - Routine Respiratory Exam Present: CTA bilaterally. Absent: rhonchi, stridor, wheezes - Routine Cardiovascular Exam Present: RRR, S1, S2. Absent: murmur, gallop, rubs - Routine Abdominal Exam Present: soft, normoactive bowel sounds. Absent: tenderness, distended, organomegaly, mass - Routine Extremities Exam Present: edema (RLE). Absent: cyanosis, clubbing Comments: RLE with postop dressing in place - Routine Skin Exam Present: intact, dry, warm - Routine Neurological Exam Present: alert, oriented X3, CN II-XII intact. Absent: sensory deficit, motor deficit - Routine Psychiatric Exam Present: normal affect, normal thought process, cooperative Results - Labs CBC & Chem 7: 02/23/18 03:32 02/23/18 03:32 Labs: Laboratory Results - last 24 hr 02/23/18 02/23/18 03:32 03:32 WBC 11.1 H RBC 4.17 L Hgb 12.4 L Hct 35.6 L MCV 85.4 MCH 29.8 MCHC 34.8 RDW 13.4 Plt Count 208 MPV 8.8 Neut % (Auto) 91.8 H Lymph % (Auto) 5.5 L [place] % (Auto) 2.6 Eos % (Auto) 0.0 Baso % (Auto) 0.1 Neut # (Auto) 10.2 H Lymph # (Auto) 0.6 L [place] # (Auto) 0.3 Eos # (Auto) 0.0 Baso # (Auto) 0.0 WBC Differential . Differential Comment Auto diff final Sodium 143 Potassium 3.5 Chloride 107 Carbon Dioxide 27.6 Anion Gap 8 BUN 8 Creatinine 0.71 Estimated GFR Greater than 89 Random Glucose 146 H Calcium 8.0 L - Imaging Knee X-Ray 02/22/18 16:51 CONCLUSION: Negative examination Assessment and Plan - Plan Septic prepatellar bursitis of right knee S/p I+D yday clx are growing MSSA (pre-cohen) dc vancomycin change zosyn to oxacillin
[2018-02-23] MEDS ORDERED: Pharmacy Ordered Lab Info OTHER ONE (23:45)
[2018-02-24] MEDS: Sod Chloride 0.9% Inj 1,000 ML IV.CONT SCH ×2 (02:47→22:20)
--- NOTE | 2018-02-24 09:02 | P.PNOP ---
Subjective Interval history: pain tolerable. Physical Exam Vital signs: Vital Signs 02/23/18 12:00 02/23/18 13:20 02/23/18 16:00 Temperature 97.8 F 97.7 F Pulse Rate 60 75 Respiratory Rate 17 16 19 Blood Pressure 116/72 114/64 Pulse Oximetry 97 98 02/23/18 20:00 02/24/18 00:00 02/24/18 08:00 Temperature 98.1 F 98.3 F 98.1 F Pulse Rate 82 76 58 L Respiratory Rate 18 Blood Pressure 105/59 L 109/56 L 98/53 L Pulse Oximetry 98 94 L 97 Intake & Output 02/23/18 02/24/18 02/24/18 18:59 06:59 18:59 Intake Total 1902.5 / 1902.5 1420 / 1420 Balance 1902.5 / 1902.5 1420 / 1420 Weight 114 kg Intake: IV 1362.5 / 1362.5 670 / 670 NS Inj 1,000 ML @ 100 mls/hr IV 1000 / 1000 .CONT .Q10H [facility] Rx#:[id number] Prostaphlin Inj 2 GM In NS Inj 100 / 100 100 ML @ 200 mls/hr IV.SIG Q4H [facility] Rx#:[id number] Zosyn 3.375 GM Premix 50 ML @ 100 / 100 50 / 50 100 mls/hr IV.SIG Q6H [facility] Rx#: [id number] Vancomycin Inj 2,000 MG In NS 520 / 520 Inj 500 ML @ 250 mls/hr IV.SIG Q12H [facility] Rx#:[id number] Oral 540 / 540 750 / 750 Other: # Voids 4 3 # Bowel Movements 1 Narrative: in bed, nad dressing removed and d/c of drain no active drainage neg homans nvi Results - Labs CBC & Chem 7: 02/23/18 03:32 02/23/18 03:32 Microbiology 02/22/18 20:53 Fluid - Other Gram Stain - Final 02/22/18 20:53 Fluid - Other Wound Culture - Preliminary Staphylococcus aureus 02/22/18 20:56 Fluid - Other Acid Fast Bacilli Smear - Final No acid fast bacilli seen 02/22/18 20:54 Other Acid Fast Bacilli Smear - Final No acid fast bacilli seen 02/22/18 20:53 Other Acid Fast Bacilli Smear - Final No acid fast bacilli seen 02/22/18 20:56 Fluid - Other Gram Stain - Final 02/22/18 20:56 Fluid - Other Wound Culture - Preliminary No growth in 24 hours 02/22/18 20:54 Fluid - Other Gram Stain - Final 02/22/18 20:54 Fluid - Other Wound Culture - Preliminary No growth in 24 hours 02/22/18 20:53 Other Fungal Smear - Final No fungal elements seen 02/22/18 17:45 Blood - Peripheral Aerobic Blood Culture - Preliminary No growth in 1 day 02/22/18 17:45 Blood - Peripheral Anaerobic Blood Culture - Preliminary No growth in 1 day 02/22/18 17:40 Blood - Peripheral Aerobic Blood Culture - Preliminary No growth in 1 day 02/22/18 17:40 Blood - Peripheral Anaerobic Blood Culture - Preliminary No growth in 1 day 02/22/18 20:56 Fluid - Other Fungal Smear - Final No fungal elements seen 02/22/18 20:54 Other Fungal Smear - Final No fungal elements seen - Procedures (1) Septic arthritis of knee, right (2) Septic prepatellar bursitis of right knee - Postoperative Diagnosis (1) Septic arthritis of knee, right (2) Septic prepatellar bursitis of right knee Date of procedure: 02/22/18 Procedure: right knee arthroscopic and open I&D Anesthesia: GETA Surgeon: Yessenia Levy MD Assessment and Plan - Ortho Post Op Day # 2 - Assessment and Plan 32 year old male POD 2 s/p I&D right knee joint and prepatellar bursa; superficial cultures +Staph aureus, deep cultures NG Plan: -Wound check and removed maddie drain this am, begin daily dry dressing changes -WBAT RLE -PT for mobilization -VTE ppx: SCDs, ambulation -Continue antibiotics per infectious disease recommendations -ortho stable, f/up 2 weeks
--- NOTE | 2018-02-24 09:51 | P.PN ---
Subjective Interval history: This is a pleasant 32 y/o male with Previous Opiate addiction, on injectable Suboxone, Asthma, GERD, who came to ER with red swollen, painful right knee, with diagnosis of Septic Arthritis Orthopedic surgery consulted and with diagnosis of Septic Arthritis of the right knee, septic prepatellar bursitis of the right knee status post Right knee arthroscopic and Open I and D. 02/22/1802/23: Seen in his bedroom in the presence of his Mother and Father stable no complaint, wants his home medicines will be started once he has the right dosages they will bring the medications for the nurse to start her medication reconciliation as per Orthopedic surgery, he has positive Staph aureus, continue with Johan drain to be removed on POD #2, then begin with daily dry dressing changes, Weight bearing as tolerated, PT for mobilization ID recommended to switch antibiotics to Oxacillin. 02/24: Stable in his bedroom, no changes to anterior recommendations but was cleared by Orthopedic Surgery will follow in two weeks. Johan removed today and recommended to begin daily dressing changes. No nausea, vomit or diarrhea. Physical Exam Vital signs: Vital Signs 02/23/18 12:00 02/23/18 13:20 02/23/18 16:00 Temperature 97.8 F 97.7 F Pulse Rate 60 75 Respiratory Rate 17 16 19 Blood Pressure 116/72 114/64 Pulse Oximetry 97 98 02/23/18 20:00 02/24/18 00:00 02/24/18 07:15 Temperature 98.1 F 98.3 F Pulse Rate 82 76 Respiratory Rate 20 20 18 Blood Pressure 105/59 L 109/56 L Pulse Oximetry 98 94 L 02/24/18 08:00 Temperature 98.1 F Pulse Rate 58 L Respiratory Rate 18 Blood Pressure 98/53 L Pulse Oximetry 97 Intake & Output 02/23/18 02/24/18 02/24/18 18:59 06:59 18:59 Intake Total 1902.5 / 1902.5 1420 / 1420 100 / 100 Balance 1902.5 / 1902.5 1420 / 1420 100 / 100 Weight 114 kg Intake: IV 1362.5 / 1362.5 670 / 670 100 / 100 NS Inj 1,000 ML @ 100 mls/hr IV 1000 / 1000 .CONT .Q10H [facility] Rx#:[id number] Prostaphlin Inj 2 GM In NS Inj 100 / 100 100 / 100 100 ML @ 200 mls/hr IV.SIG Q4H [facility] Rx#:[id number] Zosyn 3.375 GM Premix 50 ML @ 100 / 100 50 / 50 100 mls/hr IV.SIG Q6H [facility] Rx#: [id number] Vancomycin Inj 2,000 MG In NS 520 / 520 Inj 500 ML @ 250 mls/hr IV.SIG Q12H [facility] Rx#:[id number] Oral 540 / 540 750 / 750 Other: # Voids 4 3 # Bowel Movements 1 Narrative: Gen.: Obesity, No acute distress Head: Normocephalic. Atraumatic. EENT: Pupils equal round and reactive to light. Nose without drainage. Cardiovascular: Regular rate and rhythm. No murmurs, rubs or gallops. Respiratory: Lungs clear to auscultation bilaterally. No wheezes or rhonchi. Abdomen: Soft, nontender, nondistended. No peritoneal signs. Musculoskeletal: Right knee with Orthotics in place. Skin: Multiple abrasions to bilateral lower extremities. Neuro: Sensory and motor grossly intact. Cranial nerves II through XII grossly intact. Results - Labs CBC & Chem 7: 02/23/18 03:32 02/23/18 03:32 Microbiology 02/22/18 20:56 Fluid - Other Gram Stain - Final 02/22/18 20:56 Fluid - Other Wound Culture - Preliminary No growth in 48 hours 02/22/18 20:54 Fluid - Other Gram Stain - Final 02/22/18 20:54 Fluid - Other Wound Culture - Preliminary No growth in 48 hours 02/22/18 20:53 Fluid - Other Gram Stain - Final 02/22/18 20:53 Fluid - Other Wound Culture - Preliminary Staphylococcus aureus 02/22/18 20:56 Fluid - Other Acid Fast Bacilli Smear - Final No acid fast bacilli seen 02/22/18 20:54 Other Acid Fast Bacilli Smear - Final No acid fast bacilli seen 02/22/18 20:53 Other Acid Fast Bacilli Smear - Final No acid fast bacilli seen 02/22/18 20:53 Other Fungal Smear - Final No fungal elements seen 02/22/18 17:45 Blood - Peripheral Aerobic Blood Culture - Preliminary No growth in 1 day 02/22/18 17:45 Blood - Peripheral Anaerobic Blood Culture - Preliminary No growth in 1 day 02/22/18 17:40 Blood - Peripheral Aerobic Blood Culture - Preliminary No growth in 1 day 02/22/18 17:40 Blood - Peripheral Anaerobic Blood Culture - Preliminary No growth in 1 day 02/22/18 20:56 Fluid - Other Fungal Smear - Final No fungal elements seen 02/22/18 20:54 Other Fungal Smear - Final No fungal elements seen - Imaging Knee X-Ray 02/22/18 16:51 CONCLUSION: Negative examination - Procedures (1) Septic arthritis of knee, right (2) Septic prepatellar bursitis of right knee - Postoperative Diagnosis (1) Septic arthritis of knee, right (2) Septic prepatellar bursitis of right knee Date of procedure: 02/22/18 Procedure: right knee arthroscopic and open I&D Anesthesia: GETA Surgeon: Yessenia Levy MD Assessment and Plan - Plan 1. Septic Arthritis of the right knee/septic prepatellar bursitis of the right knee status post Right knee arthroscopic and Open I and D. 02/22/18. ID specialist consulted, at this time on Vancomycin and Zosyn following cultures. 02/23: As per Orthopedic surgery, he has positive Staph aureus, continue with Johan drain to be removed on POD #2, then begin with daily dry dressing changes, Weight bearing as tolerated, PT for mobilization ID recommended to switch antibiotics to Oxacillin. 02/24: okay to discharge and follow in 2 weeks by Orthopedic surgery awaiting final by ID specialist, [place] removed today. continue daily dressing changes. 2. History of opiate abuse Patient currently on Suboxone injections, last one was 60 days ago Caution with opiates 3. Hypokalemia Status post p.o. repletion Monitor BMP 4. Obesity strongly recommended diet and exercise as outpatient. 5. Depression/Anxiety disorder to re start his home medicines. 6. GERD on Omeprazole DVT prophylaxis with Lovenox Code Status: Full Code Discussed Condition With: Patient and Nurse Miss Jenkins Discharge Planning: Awaiting final by ID specialist for discharge.
[2018-02-24] MEDS ORDERED: Vancomycin Consult Pharmacy OTHER PRN (10:22)
[2018-02-24] MEDS: Vancomycin Inj 2,000 MG in Sodium Chlor 0.9% Inj 500 ML IV.SIG SCH ×2 (12:12→23:41)
[2018-02-24] MEDS: traZODone 100 MG Tablet PO SCH (20:47)
[2018-02-25] MEDS: Sod Chloride 0.9% Inj 1,000 ML IV.CONT SCH (02:51)
--- NOTE | 2018-02-25 08:42 | P.PN ---
Subjective Interval history: This is a pleasant 32 y/o male with Previous Opiate addiction, on injectable Suboxone, Asthma, GERD, who came to ER with red swollen, painful right knee, with diagnosis of Septic Arthritis Orthopedic surgery consulted and with diagnosis of Septic Arthritis of the right knee, septic prepatellar bursitis of the right knee status post Right knee arthroscopic and Open I and D. 02/22/1802/23: Seen in his bedroom in the presence of his Mother and Father stable no complaint, wants his home medicines will be started once he has the right dosages they will bring the medications for the nurse to start her medication reconciliation as per Orthopedic surgery, he has positive Staph aureus, continue with Johan drain to be removed on POD #2, then begin with daily dry dressing changes, Weight bearing as tolerated, PT for mobilization ID recommended to switch antibiotics to Oxacillin. 02/24: Stable in his bedroom, no changes to anterior recommendations but was cleared by Orthopedic Surgery will follow in two weeks. Johan removed today and recommended to begin daily dressing changes. 02/25: Patient seen in the presence of nurse Miss Jenkins, no changes to anterior assessment, continue antibiotics, no nausea, vomit or diarrhea. Physical Exam Vital signs: Vital Signs 02/24/18 12:00 02/24/18 15:47 02/24/18 16:00 Temperature 98 F 97.6 F Pulse Rate 79 65 65 Respiratory Rate 18 18 Blood Pressure 126/76 126/76 Pulse Oximetry 97 97 02/24/18 20:00 02/25/18 00:00 02/25/18 08:00 Temperature 98.2 F 98.2 F 97.2 F L Pulse Rate 60 53 L 68 Respiratory Rate 18 17 16 Blood Pressure 129/74 132/75 133/80 Pulse Oximetry 99 98 98 Intake & Output 02/24/18 02/25/18 02/25/18 18:59 06:59 18:59 Intake Total 1100 / 1100 2660 / 2660 Balance 1100 / 1100 2660 / 2660 Weight 114 kg Intake: IV 1100 / 1100 2180 / 2180 NS Inj 1,000 ML @ 100 mls/hr IV 1000 / 1000 1000 / 1000 .CONT .Q10H [facility] Rx#:[id number] Prostaphlin Inj 2 GM In NS Inj 100 / 100 100 ML @ 200 mls/hr IV.SIG Q4H [facility] Rx#:[id number] Vancomycin Inj 2,000 MG In NS 1080 / 1080 Inj 500 ML @ 250 mls/hr IV.SIG Q12H [facility] Rx#:[id number] Oral 480 / 480 Other: # Voids 2 Narrative: Gen.: Obesity, No acute distress Head: Normocephalic. Atraumatic. EENT: Pupils equal round and reactive to light. Nose without drainage. Cardiovascular: Regular rate and rhythm. No murmurs, rubs or gallops. Respiratory: Lungs clear to auscultation bilaterally. No wheezes or rhonchi. Abdomen: Soft, nontender, nondistended. No peritoneal signs. Musculoskeletal: Right knee with Orthotics in place. Skin: Multiple abrasions to bilateral lower extremities. Neuro: Sensory and motor grossly intact. Cranial nerves II through XII grossly intact. Results - Labs CBC & Chem 7: 02/23/18 03:32 02/23/18 03:32 Microbiology 02/22/18 20:56 Fluid - Other Gram Stain - Final 02/22/18 20:56 Fluid - Other Wound Culture - Final No growth in 72 hours (aerobically and anaerobically ) 02/22/18 20:54 Fluid - Other Gram Stain - Final 02/22/18 20:54 Fluid - Other Wound Culture - Final No growth in 72 hours (aerobically and anaerobically ) 02/22/18 17:45 Blood - Peripheral Aerobic Blood Culture - Preliminary No growth in 2 days 02/22/18 17:45 Blood - Peripheral Anaerobic Blood Culture - Preliminary No growth in 2 days 02/22/18 17:40 Blood - Peripheral Aerobic Blood Culture - Preliminary No growth in 2 days 02/22/18 17:40 Blood - Peripheral Anaerobic Blood Culture - Preliminary No growth in 2 days 02/22/18 20:53 Fluid - Other Gram Stain - Final 02/22/18 20:53 Fluid - Other Wound Culture - Final S. aureus MRSA - Imaging Knee X-Ray 02/22/18 16:51 CONCLUSION: Negative examination - Procedures (1) Septic arthritis of knee, right (2) Septic prepatellar bursitis of right knee - Postoperative Diagnosis (1) Septic arthritis of knee, right (2) Septic prepatellar bursitis of right knee Date of procedure: 02/22/18 Procedure: right knee arthroscopic and open I&D Anesthesia: GETA Surgeon: Yessenia Levy MD Assessment and Plan - Plan 1. Septic Arthritis of the right knee/septic prepatellar bursitis of the right knee status post Right knee arthroscopic and Open I and D. 02/22/18. ID specialist consulted, at this time on Vancomycin and Zosyn following cultures. 02/23: As per Orthopedic surgery, he has positive Staph aureus, continue with [place] drain to be removed on POD #2, then begin with daily dry dressing changes, Weight bearing as tolerated, PT for mobilization ID recommended to switch antibiotics to Oxacillin. 02/24: okay to discharge and follow in 2 weeks by Orthopedic surgery awaiting final by ID specialist, Johan removed today. continue daily dressing changes. found MRSA positive discussed with Doctor Kike early in am to re start Vancomycin. 2. History of opiate abuse Patient currently on Suboxone injections, last one was 60 days ago Caution with opiates 3. Hypokalemia Status post p.o. repletion Monitor BMP 4. Obesity strongly recommended diet and exercise as outpatient. 5. Depression/Anxiety disorder to re start his home medicines. 6. GERD on Omeprazole DVT prophylaxis with Lovenox No changes to anterior assessment. Code Status: Full code. Discussed Condition With: Patient and Nurse Miss Jenkins Discharge Planning: Awaiting final by ID specialist for discharge.
[2018-02-25] MEDS ORDERED: Pharmacy Ordered Lab Info OTHER ONE (11:45)
[2018-02-25] MEDS: Vancomycin Inj 2,000 MG in Sodium Chlor 0.9% Inj 500 ML IV.SIG SCH (12:20)
--- NOTE | 2018-02-25 19:37 | P.OP ---
- Preoperative Diagnosis (1) Septic arthritis of knee, right (2) Septic prepatellar bursitis of right knee - Postoperative Diagnosis (1) Septic arthritis of knee, right (2) Septic prepatellar bursitis of right knee Date of procedure: 02/22/18 Procedure: right knee arthroscopic and open irrigation and debridement Anesthesia: NILA Surgeon: Yessenia Levy MD Estimated blood loss (mL): 25 Tourniquet time (min): 0 Operation and Findings: Indications: This is a 32 year old male who fell while hiking 5 days ago and sustained multiple abrasions to the lower extremities. He developed increased pain, swelling and erythema as well as inability to bend the knee. He was seen at the [facility] and sent to [place] for further evaluation. He had a joint effusion and cellulitis around the knee with only about 20 degrees of active range of motion. Concern for septic arthritis was high but due to surrounding cellulitis, the joint was unable to be aspirated without concern for seeding the joint. Decision was made to proceed with operative intervention after discussion of risks, benefits and alternatives. Description of procedure: The patient was brought to the operating room and placed supine on the table. General anesthesia was administered. A tournaquet was placed on the right thigh but not inflated during the case. The right leg was then placed in the acufex leg alexander, the well leg appropriately padded, and the foot of the bed dropped. The right leg was then prepped and draped in the usual sterile fashion. Timeout was performed. I then made a standard inferolateral arthroscopy portal. The trocar was removed, and some murky and somewhat thick joint fluid returned. This was cultured and sent to the lab. I milked the knee to get as much of the fluid out, and in doing so, some purulence appeared over the anterior aspect of the knee. This was separately cultured. I then inserted the camera and began the diagnostic scope. An inferomedial portal was made under direct visualization, as was a superolateral portal for better outflow. Three liters of antibiotic fluid were used to wash out the knee joint, followed by six liters of lactated ringers. Diagnostic arthroscopy revealed some grade 2 chondromalacia of the medial femoral condyle with a focal area of fissuring. There was no unstable flap present. The patellofemoral joint showed some grade 1 changes, and the lateral compartment cartilage was normal. Menisci were probed and no tears found. ACL was normal. There was some synovitis present, primarily in the suprapatellar pouch and some of this was gently debrided with the shaver. Once the knee had been flushed, scope was removed and attention turned to the prepatellar bursa. A small incision was made over the bursa and gross purulence was encountered. The incision was then opened up a bit and the bursal sac was copiously irrigated. Once clean, a small maddie drain was then place and this incision was loosely closed to allow for drainage. Portal sites were closed with 3-0 nylon. Wounds were then dressed with xeroform, 4x4s, abd pad, softroll and monica wrap. The patient was then awoken from general anesthesia and taken to the recovery room in good condition, having tolerated the procedure well. Disposition: will continue antibiotics and follow cultures. Plan to remove maddie on POD2. He is weight bearing as tolerated on this extremity.
[2018-02-25] MEDS: traZODone 100 MG Tablet PO SCH (20:20)
[2018-02-26] MEDS: Vancomycin Inj 2,000 MG in Sodium Chlor 0.9% Inj 500 ML IV.SIG SCH ×2 (01:00→11:13)
[2018-02-26] MEDS: Sod Chloride 0.9% Inj 1,000 ML IV.CONT SCH (02:57)
[2018-02-26 05:42] LABS: Anion Gap 8 meq/L (5-15); Blood Urea Nitrogen 8 mg/dL (7-18); Calcium 7.4 mg/dL (8.5-10.1); Carbon Dioxide 26.6 meq/L (21.0-32.0); Chloride 110 meq/L (98-107); Glomerular Filtration Rate Greater Than 89 mL/min (>89); Glucose,Random 110 mg/dL (74-106); Magnesium 1.5 mg/dL (1.5-2.5); Potassium 3.2 meq/L (3.5-5.1); Sodium 145 meq/L (136-145)
[2018-02-26 05:56] LABS: Total Protein 4.9 g/dL (6.4-8.2)
[2018-02-26 08:15] VITALS: RESP 19
--- NOTE | 2018-02-26 09:18 | P.PN ---
Subjective Interval history: This is a pleasant 32 y/o male with Previous Opiate addiction, on injectable Suboxone, Asthma, GERD, who came to ER with red swollen, painful right knee, with diagnosis of Septic Arthritis Orthopedic surgery consulted and with diagnosis of Septic Arthritis of the right knee, septic prepatellar bursitis of the right knee status post Right knee arthroscopic and Open I and D. 02/22/1802/23: Seen in his bedroom in the presence of his Mother and Father stable no complaint, wants his home medicines will be started once he has the right dosages they will bring the medications for the nurse to start her medication reconciliation as per Orthopedic surgery, he has positive Staph aureus, continue with Johan drain to be removed on POD #2, then begin with daily dry dressing changes, Weight bearing as tolerated, PT for mobilization ID recommended to switch antibiotics to Oxacillin. 02/24: Stable in his bedroom, no changes to anterior recommendations but was cleared by Orthopedic Surgery will follow in two weeks. Johan removed today and recommended to begin daily dressing changes. 02/25: Patient seen in the presence of nurse Miss Jenkins, no changes to anterior assessment, continue antibiotics, 02/26: Stable in his bedroom, no nausea, vomit or diarrhea, Infectious Disease specialist following awaiting final recommendations, has MRSA positive in wound culture but no BSI. found today with hypokalemia and Hypomagnesemia replaced and following. encourage ambulation to avoid major recommendations. Physical Exam Vital signs: Vital Signs 02/25/18 12:00 02/25/18 16:00 02/25/18 20:00 Temperature 97.9 F 98.3 F 98.6 F Pulse Rate 80 77 58 L Respiratory Rate 16 16 17 Blood Pressure 131/62 125/81 120/70 Pulse Oximetry 98 98 97 02/26/18 00:00 02/26/18 07:49 02/26/18 08:00 Temperature 98.7 F 97.8 F Pulse Rate 60 72 Respiratory Rate 17 18 19 Blood Pressure 117/68 124/74 Pulse Oximetry 97 98 Intake & Output 02/25/18 02/26/18 02/26/18 18:59 06:59 18:59 Intake Total 4720 / 4720 1000 / 1000 Balance 4720 / 4720 1000 / 1000 Weight 114 kg Intake: IV 1520 / 1520 520 / 520 NS Inj 1,000 ML @ 100 mls/hr IV 1000 / 1000 .CONT .Q10H [facility] Rx#:[id number] Vancomycin Inj 2,000 MG In NS 520 / 520 520 / 520 Inj 500 ML @ 250 mls/hr IV.SIG Q12H [facility] Rx#:[id number] Oral 3200 / 3200 480 / 480 Other: # Voids 5 2 Date of Last Bowel Movement 02/25/18 # Bowel Movements 0 Narrative: Gen.: Obesity, No acute distress Head: Normocephalic. Atraumatic. EENT: Pupils equal round and reactive to light. Nose without drainage. Cardiovascular: Regular rate and rhythm. No murmurs, rubs or gallops. Respiratory: Lungs clear to auscultation bilaterally. No wheezes or rhonchi. Abdomen: Soft, nontender, nondistended. No peritoneal signs. Musculoskeletal: Right knee with Orthotics in place. Skin: Multiple abrasions to bilateral lower extremities. Neuro: Sensory and motor grossly intact. Cranial nerves II through XII grossly intact. Results - Labs CBC & Chem 7: 02/23/18 03:32 02/26/18 03:48 Laboratory Results - last 24 hr 02/25/18 02/26/18 11:54 03:48 Sodium 145 Potassium 3.2 L Chloride 110 H Carbon Dioxide 26.6 Anion Gap 8 BUN 8 Creatinine 0.75 Estimated GFR Greater than 89 Random Glucose 110 H Calcium 7.4 L* Prot Corrected Calcium 8.6 Magnesium 1.5 Total Protein 4.9 L D Vancomycin Trough 16.3 H Microbiology 02/22/18 17:45 Blood - Peripheral Aerobic Blood Culture - Preliminary No growth in 3 days 02/22/18 17:45 Blood - Peripheral Anaerobic Blood Culture - Preliminary No growth in 3 days 02/22/18 17:40 Blood - Peripheral Aerobic Blood Culture - Preliminary No growth in 3 days 02/22/18 17:40 Blood - Peripheral Anaerobic Blood Culture - Preliminary No growth in 3 days 02/22/18 20:56 Fluid - Other Gram Stain - Final 02/22/18 20:56 Fluid - Other Wound Culture - Final No growth in 72 hours (aerobically and anaerobically ) 02/22/18 20:54 Fluid - Other Gram Stain - Final 02/22/18 20:54 Fluid - Other Wound Culture - Final No growth in 72 hours (aerobically and anaerobically ) - Imaging Knee X-Ray 02/22/18 16:51 CONCLUSION: Negative examination - Procedures (1) Septic arthritis of knee, right (2) Septic prepatellar bursitis of right knee - Postoperative Diagnosis (1) Septic arthritis of knee, right (2) Septic prepatellar bursitis of right knee Date of procedure: 02/22/18 Procedure: right knee arthroscopic and open I&D Anesthesia: GETA Surgeon: Yessenia Levy MD Assessment and Plan - Plan 1. Septic Arthritis of the right knee/septic prepatellar bursitis of the right knee status post Right knee arthroscopic and Open I and D. 02/22/18. ID specialist consulted, at this time on Vancomycin and Zosyn following cultures. 02/23: As per Orthopedic surgery, he has positive Staph aureus, continue with Johan drain to be removed on POD #2, then begin with daily dry dressing changes, Weight bearing as tolerated, PT for mobilization ID recommended to switch antibiotics to Oxacillin. 02/24: okay to discharge and follow in 2 weeks by Orthopedic surgery awaiting final by ID specialist, Johan removed today. continue daily dressing changes. found MRSA positive discussed with Doctor Kike early in am to re start Vancomycin. 2. History of opiate abuse Patient currently on Suboxone injections, last one was 60 days ago Caution with opiates 3. Hypokalemia and Hypomagnesemia replaced and following. 4. Obesity strongly recommended diet and exercise as outpatient. 5. Depression/Anxiety disorder to re start his home medicines. 6. GERD on Omeprazole DVT prophylaxis with Lovenox Code Status: Full code. Discussed Condition With: Patient and Nurse Mr. Laurent Discharge Planning: Awaiting final by ID specialist for discharge.
[2018-02-26] MEDS ORDERED: Magnesium Sulfate Inj 2 GM in Sodium Chlor 0.9% Inj 96 ML IV.SIG ONE (09:30)
[2018-02-26 12:22] VITALS: BP 136/75; PULSE 83; TEMP 97.7; O2SAT 97
--- NOTE | 2018-02-26 13:27 | P.PNID ---
Subjective Remarks: pt is doing OK no fever no new c/o he grew out MRSA he is OOT (from [place]) Antibiotics: vanco Allergies/Adverse Reactions: Allergies gabapentin Allergy (Verified 02/22/18 15:49) Rash haloperidol [From Haldol] Allergy (Verified 02/22/18 15:49) Joint Pain ketorolac [From Toradol] Allergy (Verified 02/22/18 15:49) Hives Objective Vital Signs 02/25/18 16:00 02/25/18 20:00 02/26/18 00:00 Temperature 98.3 F 98.6 F 98.7 F Pulse Rate 77 58 L 60 Respiratory Rate 16 17 17 Blood Pressure 125/81 120/70 117/68 Pulse Oximetry 98 97 97 02/26/18 07:49 02/26/18 08:00 02/26/18 12:00 Temperature 97.8 F 97.7 F Pulse Rate 72 83 Respiratory Rate 18 19 19 Blood Pressure 124/74 136/75 Pulse Oximetry 98 97 Intake & Output 02/25/18 02/26/18 02/26/18 18:59 06:59 18:59 Intake Total 4720 / 4720 1000 / 1000 Balance 4720 / 4720 1000 / 1000 Weight 114 kg Intake: IV 1520 / 1520 520 / 520 NS Inj 1,000 ML @ 100 mls/hr IV 1000 / 1000 .CONT .Q10H [facility] Rx#:[id number] Vancomycin Inj 2,000 MG In NS 520 / 520 520 / 520 Inj 500 ML @ 250 mls/hr IV.SIG Q12H [facility] Rx#:[id number] Oral 3200 / 3200 480 / 480 Other: # Voids 5 2 Date of Last Bowel Movement 02/25/18 # Bowel Movements 0 02/22/18 17:45 Blood - Peripheral Aerobic Blood Culture - Preliminary No growth in 4 days 02/22/18 17:45 Blood - Peripheral Anaerobic Blood Culture - Preliminary No growth in 4 days 02/22/18 17:40 Blood - Peripheral Aerobic Blood Culture - Preliminary No growth in 4 days 02/22/18 17:40 Blood - Peripheral Anaerobic Blood Culture - Preliminary No growth in 4 days 02/22/18 20:56 Fluid - Other Gram Stain - Final 02/22/18 20:56 Fluid - Other Wound Culture - Final No growth in 72 hours (aerobically and anaerobically ) 02/22/18 20:54 Fluid - Other Gram Stain - Final 02/22/18 20:54 Fluid - Other Wound Culture - Final No growth in 72 hours (aerobically and anaerobically ) 02/22/18 20:53 Fluid - Other Gram Stain - Final 02/22/18 20:53 Fluid - Other Wound Culture - Final S. aureus MRSA 02/22/18 20:56 Fluid - Other Acid Fast Bacilli Smear - Final No acid fast bacilli seen 02/22/18 20:56 Fluid - Other Mycobacterial Culture - Pending 02/22/18 20:54 Other Acid Fast Bacilli Smear - Final No acid fast bacilli seen 02/22/18 20:54 Other Mycobacterial Culture - Pending 02/22/18 20:53 Other Acid Fast Bacilli Smear - Final No acid fast bacilli seen 02/22/18 20:53 Other Mycobacterial Culture - Pending 02/22/18 20:53 Other Fungal Smear - Final No fungal elements seen 02/22/18 20:53 Other Fungal Culture - Pending 02/22/18 20:56 Fluid - Other Fungal Smear - Final No fungal elements seen 02/22/18 20:56 Fluid - Other Fungal Culture - Pending 02/22/18 20:54 Other Fungal Smear - Final No fungal elements seen 02/22/18 20:54 Other Fungal Culture - Pending Lab - Chemistry Results 02/26/18 03:48 Sodium 145 Potassium 3.2 L Chloride 110 H Carbon Dioxide 26.6 Anion Gap 8 BUN 8 Creatinine 0.75 Estimated GFR Greater than 89 Random Glucose 110 H Calcium 7.4 L* Prot Corrected Calcium 8.6 Magnesium 1.5 Total Protein 4.9 L D Imaging: ITS Impressions Knee X-Ray 02/22/18 16:51 CONCLUSION: Negative examination Physical Exam: GENERAL: NAD SKIN: Warm and dry. No rash CARDIOVASCULAR: Regular rate and rhythm. No murmurs RESPIRATORY: No accessory muscle use. Clear to auscultation. GASTROINTESTINAL: Abdomen soft, non-tender, nondistended. MUSCULOSKELETAL: Extremities without clubbing, cyanosis, Mild edema. Dressing with small serosang staining over R knee NEUROLOGICAL: Awake and alert. Non focal PSYCHIATRIC: Appropriate mood and affect; insight and judgment normal. Assessment and Plan - Plan Septic prepatellar bursitis of right knee, MRSA S/p I+D yday final clx are growing MRSA S to clindamycin dc vancomycin oral clindamycin 300 mg QID x 14 days Pt needs to report diarrhea and/or abd pain immediately to provider will and after clinda tx: gregory pt over the phone OK to dc home Fu with Dr Giovanna jenkins family dw pt dw case mngr
--- NOTE | 2018-02-26 13:57 | P.DS ---
Date of admission: 02/22/18 19:55 Primary care physician: [facility] Attending physician on discharge: Tao Portillo Anticipated date of discharge: 02/26/18 Brief History from admission: 32-year-old male with a past medical history significant for previous opiate addiction currently on injectable Suboxone, asthma and GERD presents to the emergency department for the evaluation of a red, swollen, painful right knee. The patient reports he was hiking approximately 1 week ago when he sustained several scratches from the brush. He states that approximately 3-4 days ago his right knee began swelling and has become more painful and swollen since that time. He endorses subjective chills. He has had generalized malaise for several days. Patient denies any recent IV drug abuse. He reports that he has been clean for the last 7 months. No chest pain or shortness of breath. No abdominal pain. No nausea/vomiting/diarrhea. Of note, last Suboxone injection was 60 days ago. DS: Diagnosis - Discharge Diagnosis (1) Septic arthritis of knee, right Status: Acute (2) Septic prepatellar bursitis of right knee Status: Acute DS: Summary Hospital Course: This is a pleasant 32 y/o male with Previous Opiate addiction, on injectable Suboxone, Asthma, GERD, who came to ER with red swollen, painful right knee, with diagnosis of Septic Arthritis Orthopedic surgery consulted and with diagnosis of Septic Arthritis of the right knee, septic prepatellar bursitis of the right knee status post Right knee arthroscopic and Open I and D. 02/22/1802/23: Seen in his bedroom in the presence of his Mother and Father stable no complaint, wants his home medicines will be started once he has the right dosages they will bring the medications for the nurse to start her medication reconciliation as per Orthopedic surgery, he has positive Staph aureus, continue with Johan drain to be removed on POD #2, then begin with daily dry dressing changes, Weight bearing as tolerated, PT for mobilization ID recommended to switch antibiotics to Oxacillin. 02/24: Stable in his bedroom, no changes to anterior recommendations but was cleared by Orthopedic Surgery will follow in two weeks. Johan removed today and recommended to begin daily dressing changes. 02/25: Patient seen in the presence of nurse Miss Jenkins, no changes to anterior assessment, continue antibiotics, 02/26: Stable in his bedroom, no nausea, vomit or diarrhea, Infectious Disease specialist following awaiting final recommendations, has MRSA positive in wound culture but no BSI. found today with hypokalemia and Hypomagnesemia replaced and following. encourage ambulation to avoid major recommendations. Assessment and Plan - Plan 1. Septic Arthritis of the right knee/septic prepatellar bursitis of the right knee status post Right knee arthroscopic and Open I and D. 02/22/18. ID specialist consulted, at this time on Vancomycin and Zosyn following cultures. 02/23: As per Orthopedic surgery, he has positive Staph aureus, continue with [place] drain to be removed on POD #2, then begin with daily dry dressing changes, Weight bearing as tolerated, PT for mobilization ID recommended to switch antibiotics to Oxacillin. 02/24: okay to discharge and follow in 2 weeks by Orthopedic surgery awaiting final by ID specialist, Johan removed today. continue daily dressing changes. found MRSA positive discussed with Doctor Kike early in am to re start Vancomycin. 2. History of opiate abuse Patient currently on Suboxone injections, last one was 60 days ago Caution with opiates 3. Hypokalemia and Hypomagnesemia replaced and following. 4. Obesity strongly recommended diet and exercise as outpatient. 5. Depression/Anxiety disorder to re start his home medicines. 6. GERD on Omeprazole DVT prophylaxis with Lovenox Code Status: Full code. Discussed Condition With: Patient and Nurse Mr. Laurent Discharge Planning: Awaiting final by ID specialist for discharge. - Time Spent with Patient Total time spent providing and/or coordinating discharge services: Greater than 30 minutes - Quality: VTE Deep Vein Thrombosis/Pulmonary Embolism Present on Admission: No Exam Vital signs: Vital Signs 02/25/18 16:00 02/25/18 20:00 02/26/18 00:00 Temperature 98.3 F 98.6 F 98.7 F Pulse Rate 77 58 L 60 Respiratory Rate 17 17 Blood Pressure 125/81 120/70 117/68 Pulse Oximetry 98 97 97 02/26/18 07:49 02/26/18 08:00 02/26/18 11:41 Temperature 97.8 F Pulse Rate 72 Respiratory Rate 18 19 18 Blood Pressure 124/74 Pulse Oximetry 98 02/26/18 12:00 Temperature 97.7 F Pulse Rate 83 Respiratory Rate 19 Blood Pressure 136/75 Pulse Oximetry 97 Intake & Output 02/25/18 02/26/18 02/26/18 18:59 06:59 18:59 Intake Total 4720 / 4720 1000 / 1000 950 / 950 Balance 4720 / 4720 1000 / 1000 950 / 950 Weight 114 kg Intake: IV 1520 / 1520 520 / 520 950 / 950 NS Inj 1,000 ML @ 100 mls/hr IV 1000 / 1000 700 / 700 .CONT .Q10H [facility] Rx#:[id number] Vancomycin Inj 2,000 MG In NS 520 / 520 520 / 520 250 / 250 Inj 500 ML @ 250 mls/hr IV.SIG Q12H [facility] Rx#:[id number] Oral 3200 / 3200 480 / 480 Other: # Voids 5 2 Date of Last Bowel Movement 02/25/18 # Bowel Movements 0 Narrative: Gen.: Obesity, No acute distress Head: Normocephalic. Atraumatic. EENT: Pupils equal round and reactive to light. Nose without drainage. Cardiovascular: Regular rate and rhythm. No murmurs, rubs or gallops. Respiratory: Lungs clear to auscultation bilaterally. No wheezes or rhonchi. Abdomen: Soft, nontender, nondistended. No peritoneal signs. Musculoskeletal: Right knee with Orthotics in place. Skin: Multiple abrasions to bilateral lower extremities. Neuro: Sensory and motor grossly intact. Cranial nerves II through XII grossly intact. Results Procedures completed during hospitalization: (1) Septic arthritis of knee, right (2) Septic prepatellar bursitis of right knee - Postoperative Diagnosis (1) Septic arthritis of knee, right (2) Septic prepatellar bursitis of right knee Date of procedure: 02/22/18 Procedure: right knee arthroscopic and open I&D Anesthesia: GETA Surgeon: Yessenia Levy MD Labs on day of discharge: Labs from last 24 hours 02/26/18 02/26/18 09:57 03:48 Sodium 145 Potassium 3.2 L Chloride 110 H Carbon Dioxide 26.6 Anion Gap 8 BUN 8 Creatinine 0.75 Estimated GFR Greater than 89 Random Glucose 110 H Hemoglobin A1c Pending Calcium 7.4 L* Prot Corrected Calcium 8.6 Magnesium 1.5 Total Protein 4.9 L D Preliminary micro results at discharge 02/22/18 17:45 Aerobic Blood Culture - Preliminary Blood - Peripheral No growth in 4 days Anaerobic Blood Culture - Preliminary No growth in 4 days 02/22/18 17:40 Aerobic Blood Culture - Preliminary Blood - Peripheral No growth in 4 days Anaerobic Blood Culture - Preliminary No growth in 4 days - Impressions ITS Impressions Knee X-Ray 02/22/18 16:51 CONCLUSION: Negative examination Discharge Plan - Discharge Disposition Patient Disposition: 01 Discharge Home - Discharge Condition Condition: Stable - Discharge Order Discharge Orders: Discharge Order (Routine); Ordered 02/26/18 Ordered By: Tao Portillo - Discharge Details Anticipated Discharge Date: 02/26/18 Discharge Comment: Follow with PCP in three days - Physicians Team Primary Care Provider: [facility] Attending Provider: Tao Portillo Other Providers: Yessenia Levy MD ; Ashlyn Stokes MD
[2018-02-26 14:48] LABS: Hemoglobin A1c 5.1 % (4.3-6.0)
[2018-02-28] MEDS ORDERED: Pharmacy Ordered Lab Info OTHER ONE (11:45)
== END 2018-02-26 15:28 | disposition home or self-care (01) ==
LOC: NEPD 15:19 → NEDA 19:55 → N07 22:47
PROVIDERS: ADMIT Internal Medicine; ATTEND Internal Medicine